=== PATIENT | female | born 1975 | race Hispanic/Latino ===

== ENCOUNTER 2017-10-30 21:53 | Emergency (ER) | payer MEDICAID, SELFPAY ==
--- NOTE | 2017-10-30 23:46 | CT ---
BRAIN CT WITHOUT IV CONTRAST: 10/30/17 HISTORY: Intermittent headache since May. No focal mass or midline shift. No intra or extra-axial hemorrh age. Sinuses and mastoids are clear. IMPRESSION: No acute intracranial process. No mass or bleed. POS: [facility]
== END 2017-10-31 00:10 | disposition home or self-care (01) ==
LOC: ERS 21:53
DX: R51 Headache (principal); J45.909 Unspecified asthma, uncomplicated; Z79.899 Other long term (current) drug therapy
CPT/HCPCS: 70450